=== PATIENT | male | born 1960 | race Caucasian/White ===

== ENCOUNTER 2017-06-25 12:09 | Emergency (ER) | payer MEDICAID ==
--- NOTE | 2017-06-25 12:50 | ED ---
Psychiatric Complaint - HPI Summary HPI Summary: Patient presents to the ED with police escort although she is volutnary. She states she is struggling with gender identities and identifies as female, although born a male. She states she had been living at the [facility] in [place], [place]. She states they have not been taking care of her in terms of taking her shopping, sticking to the plans made for her for improvement, etc. She notes to depression, gender identity issues and anxiety. Denies support system. She has had thoughts of suicide, but denies currently. She states she wrote a letter to white hospital director of her house and stated she was leaving to come to [place]. Police were called after concern for her safety and brought her to the ED. Currently taking zoloft 100mg; buspar 10mg QID; abilify 5mg daily as well as hormone therapy. Denies SI/HI currently or any self harm. Denies ETOH or drug use. - History Of Current Complaint Chief Complaint: EDMentalHealth Time Seen by Provider: 06/25/17 12:26 Hx Obtained From: Patient Onset/Duration: Gradual Onset Timing: Constant Severity Initially: Moderate Severity Currently: Moderate Character: Depressed Aggravating Factor(s): Recent Stress Alleviating Factor(s): Counseling Associated Signs And Symptoms: Positive: Confused, Paranoid Behavior, Social Withdrawal, Social Isolation Related History: Positive For: Prior Psychiatric Issues Has Suicidal: Reports: Thoughts - no plan, and denies currently - has had "thoughts" over the past few weeks - Risk Factor(s) Completed Suicide Risk Factors: Male, White [place] - Allergies/Home Medications Home Medications: Home Medications ARIPiprazole TAB* [Abilify TAB*] 5 mg PO DAILY 06/25/17 [History Confirmed 03/06] Cefdinir [Cefdinir 300 MG CAP] 300 mg PO BID 06/25/17 [History Confirmed ] Estradiol [Estrace] 1 mg PO DAILY 06/25/17 [History Confirmed 06/25/17] Estradiol [Estrace] 2 mg PO BID 06/25/17 [History Confirmed 06/25/17] Sertraline* [Zoloft*] 100 mg PO DAILY 06/25/17 [History Confirmed 06/25/17] busPIRone TAB* [Buspar TAB*] 10 mg PO QID 06/25/17 [History Confirmed 06/25/17] PMH/Surg Hx/FS Hx/Imm Hx Previously Healthy: Yes - Immunization History Hx Pertussis Vaccination: No Immunizations Up to Date: Unable to Obtain/Confirm Infectious Disease History: Denies: Traveled Outside the [place] in Last 30 Days - Social History Occupation: Unemployed Lives: Residential - now living at hotel x 2 days after leaving long term Alcohol Use: None - quit 10 years ago Hx Substance Use: No Substance Use Type: Reports: None Hx Tobacco Use: No Smoking Status (MU): Never Smoked Tobacco Review of Systems Constitutional: Negative Negative: Fever, Fatigue Cardiovascular: Negative Respiratory: Negative Genitourinary: Negative Positive: no symptoms reported, see HPI Musculoskeletal: Negative Skin: Negative Positive: Anxious, Depressed, Other - identity confusion All Other Systems Reviewed And Are Negative: Yes Physical Exam Triage Information Reviewed: Yes Vital Signs On Initial Exam: Initial Vitals Temp Pulse Resp BP Pulse Ox 97.3 F 88 20 161/89 97 06/25/17 12:12 06/25/17 12:12 06/25/17 12:12 06/25/17 12:12 06/25/17 12:12 Vital Signs Reviewed: Yes Appearance: Positive: Well-Appearing, Well-Nourished Skin: Positive: Warm, Skin Color Reflects Adequate Perfusion Head/Face: Positive: Normal Head/Face Inspection Eyes: Positive: EOMI, IVY, Conjunctiva Clear Neck: Positive: Supple, No Lymphadenopathy Respiratory/Lung Sounds: Positive: Clear to Auscultation, Breath Sounds Present Cardiovascular: Positive: Normal, RRR, Pulses are Symmetrical in both Upper and Lower Extremities Musculoskeletal: Positive: Strength/ROM Intact Neurological: Positive: Sensory/Motor Intact, Alert, Oriented to Person Place, Time, Speech Normal Psychiatric: Positive: Normal AVPU Assessment: Alert Diagnostics - Vital Signs Vital Signs Temp Pulse Resp BP Pulse Ox 06/25/17 12:12 97.3 F 88 20 161/89 97 - Laboratory Result Diagrams: 06/25/17 12:56 06/25/17 12:56 Lab Statement: Any lab studies that have been ordered have been reviewed, and results considered in the medical decision making process. Course/Dx - Course Course Of Treatment: Patient evaluated for new behaviors such as leaving her long term, discontinuing her medications, identity issues causing depression. She denies any physical pain and is cleared for MHU. - Differential Dx/Clinical Impression Differential Diagnosis/HQI/PQRI: Positive: Anxiety, Bipolar Disorder, Depression Provider Diagnosis: Depression, Gender identity disorder Discharge - Discharge Plan Condition: Good Disposition: HOME Patient Education Materials: Anxiolysis in Adults (ED) Referrals: Wong GREWAL,Nicole Cruz [Primary Care Provider] -
[2017-06-25 13:08] LABS: Hematocrit 42 % (42-52); Hemoglobin 14.2 g/dl (14.0-18.0); Mean Corpuscular HGB Conc 34 g/dl (31-36); Mean Corpuscular Hemoglobin 29 pg (27-31); Mean Corpuscular Volume 84 fL (80-94); Mean Platelet Volume 10 um3 (7.4-10.4); Red Blood Count 4.98 10^6/ul (4.0-5.4); Red Cell Distribution Width 15 % (10.5-15)
[2017-06-25 13:24] LABS: ALT 13 U/L (7-52); AST 15 U/L (13-39); Albumin 4.2 g/dL (3.2-5.2); Alkaline Phosphatase 49 U/L (34-104); Anion Gap 7 mmol/L (2-11); BUN/Creatinine Ratio 23.8 (8-20); Blood Urea Nitrogen 20 mg/dL (6-24); CO2 Carbon Dioxide 24 mmol/L (22-32); Calcium 9.8 mg/dL (8.6-10.3); Chloride 103 mmol/L (101-111); EGFR Non-African American 94.9 (>60); Globulin 3.3 g/dL (2-4); Glucose 98 mg/dL (70-100); Potassium 4.2 mmol/L (3.5-5.0); Sodium 134 mmol/L (133-145); Total Protein 7.5 g/dL (6.4-8.9)
[2017-06-25 14:07] LABS: TSH (Thyroid Stimulating Horm) 1.44 mcIU/mL (0.34-5.60)
[2017-06-25 14:10] LABS: Acetaminophen < 15 mcg/mL; Alcohol < 10 mg/dL (<10); Salicylate < 2.50 mg/dL (<30)
[2017-06-25 14:42] LABS: Urine Bilirubin Negative (Negative); Urine Glucose Negative (Negative); Urine Nitrite Negative (Negative)
[2017-06-25 14:58] LABS: Benzodiazepine Urine Screen None Detected (None Detect)
== END 2017-06-25 18:30 | disposition home or self-care (01) ==
LOC: ED 12:09
DX: F32.9 Major depressive disorder, single episode, unspecified (principal); F64.9 Gender identity disorder, unspecified
CPT/HCPCS: 36415; 80053; 80307; 80320; 80329; 81003; 84443; 85025; 99283; G0480